=== PATIENT | male | born 1965 | race Caucasian/White ===

== ENCOUNTER 2018-07-06 01:46 | Emergency (ER) | payer OTHER ==
[~2018-07-06] VITALS: Ht 185.4 cm; Wt 79.4 kg
[2018-07-06] MEDS ORDERED: DIAZ10TA PO (02:03)
[2018-07-06] MEDS ORDERED: OXYC10TA49 PO (02:03)
--- NOTE | 2018-07-06 02:59 | NUR ---
DR VERN SRIVASTAVA MD AT BEDSIDE FOR MSE.
[2018-07-06] MEDS ORDERED: PIPERACILLIN/TAZOBACTAM/D5W 50 ML IV ONE (03:16)
[2018-07-06] MEDS ORDERED: NEOMY/BACITRA/POLYMYXIN B OINT UD PACKET TP ONE (03:16)
[2018-07-06] MEDS: PIPERACILLIN/TAZOBACTAM/D5W 3.375 G in PREMIXED 1 EACH IV SCH (03:31)
[2018-07-06 03:38] LABS: BASOPHILS # (AUTO) 0.1 K/uL (0.0-8.0); BASOPHILS % (AUTO) 0.5 % (0.0-2.0); EOSINOPHILS # (AUTO) 0.5 K/uL (0.0-0.7); EOSINOPHILS % (AUTO) 4.2 % (0.0-7.0); HEMATOCRIT 44.6 % (36.7-47.1); HEMOGLOBIN 15.5 g/dL (12.5-16.3); LYMPHOCYTES # (AUTO) 4.7 K/uL (20.0-40.0); MEAN CORPUSCULAR HEMOGLOBIN 34.5 uug (23.8-33.4); MEAN CORPUSCULAR HGB CONC 35 g/dL (32.5-36.3); MEAN CORPUSCULAR VOLUME 99.6 fL (73.0-96.2); MONOCYTES # (AUTO) 0.8 K/uL (2.0-10.0); MONOCYTES % (AUTO) 7.1 % (0.0-11.0); NEUTROPHILS # (AUTO) 5.6 K/uL (1.8-8.9); NEUTROPHILS % (AUTO) 48.2 % (38.5-71.5); PLATELET COUNT (AUTO) 251 K/uL (152-348); RED BLOOD CELL COUNT(AUTO) 4.48 MIL/uL (4.06-5.63); WHITE BLOOD COUNT (AUTO) 11.7 K/uL (3.6-10.2)
[2018-07-06] MEDS: NEOMY/BACITRA/POLYMYXIN B OINT UD PACKET TP ONE (03:41)
[2018-07-06] MEDS: IV NS 1000 ML 1,000 ML IV ONE (03:41)
[2018-07-06 03:51] LABS: CREATININE 1.2 mg/dL (0.6-1.3); POTASSIUM 3.8 mmol/L (3.5-5.1)
[2018-07-06 03:56] LABS: BILIRUBIN,TOTAL 0.6 mg/dL (0.2-1.0); TOTAL PROTEIN, SERUM 6.2 g/dL (6.4-8.2)
--- NOTE | 2018-07-06 04:23 | NUR ---
Patient discharged to home in stable conditon. Written and verbal after care instructions given. Patient verbalizes understanding of instructions. IV removed, w/ catheter intact. Pressure applied, no bleeding noted at site. Pt ambulated from ER w/ use of cane. Pt took all personal belongings.
[2018-07-06 04:25] VITALS: BP 121/62
== END 2018-07-06 04:33 | disposition home or self-care (01) ==
LOC: ER 02:00
DX: L03.317 Cellulitis of buttock (principal); Z88.8 Allergy status to other drugs, medicaments and biological substances; Z59.0 Homelessness
CPT/HCPCS: 36415; 85025; 87040; A4663; J2543; J7030